=== PATIENT | female | born 1985 | race Caucasian/White ===

== ENCOUNTER 2016-08-31 19:02 | Outpatient (CLI) | payer OTHER | END 2016-08-31 19:03 | disposition home or self-care (01) | DX: O99.89 Other specified diseases and conditions complicating pregnancy, childbirth and the puerperium (principal); R10.10 Upper abdominal pain, unspecified ==

== ENCOUNTER 2016-10-19 15:14 | Outpatient (CLI) | payer OTHER | END 2016-10-19 15:15 | disposition critical access hospital (66) | LOC: EMS 15:14 | PROVIDERS: ATTEND Surgery | DX: R45.850 Homicidal ideations (principal); R45.851 Suicidal ideations | CPT/HCPCS: A0425; A0429 ==

== ENCOUNTER 2016-10-19 15:31 | Emergency (ER) | payer OTHER ==
--- NOTE | 2016-10-19 15:54 | ED Physician Documentation ---
PD HPI MHE - Stated complaint Stated Complaint: SI - Chief complaint Chief Complaint: MHE - History obtained from History obtained from: Patient, EMS, Police - History of Present Illness Primary symptom: Suicidal ideation, Homicidal ideation (feeling stressed by baby, but does not have urge/sensation of wanting to act on any of the feelings.), Depression (she has felt depression since prior child 16 months ago, and had quick new (when prior child was only 7 months old) . Having increased depression and fatigue the past month since of newest baby.). 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 Has counselor. Was having suicidal thoughts and so brought to ED for evalaution.) Contributing factors: Family ( child and another 16 month old child). No : Substance abuse - ETOH, Substance abuse - drugs Similar symptoms before: Diagnosis ( depression) Recently seen: Clinic (counseling weekly) Review of Systems Constitutional: denies: Fever, Chills Nose: denies: Rhinorrhea / runny nose, Congestion Throat: denies: Sore throat Respiratory: denies: Cough GI: denies: Vomiting, Diarrhea : denies: Dysuria, Frequency, Discharge Psychiatric: reports: Depressed. 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 MAINTAINER: section, Oophrectomy - Present Medications Home Medications: Ambulatory Orders Medication Instructions Recorded Confirmed Multivit with Calcium,Iron,Min 1 each PO DAILY PM 12/26/15 12/26/15 [Multiple Vitamins For Women] Paroxetine HCl [Paxil] 40 mg PO DAILY 10/19/16 10/19/16 - Allergies Allergies/Adverse Reactions: Allergies Allergy/AdvReac Type Severity Reaction Status Date / Time codeine Allergy Hives Verified 10/19/16 15:34 - Social History Does the pt smoke?: No Smoking Status: Never smoker PD ED PE NORMAL - Vitals Vital signs reviewed: Yes - General General: Alert and oriented X 3, No acute distress, Well developed/nourished - Neck Neck: Supple, no meningeal sign, No adenopathy - Cardiac Cardiac: RRR, No murmur - Respiratory Respiratory: Clear bilaterally - Abdomen Abdomen: Soft, Non tender - Derm Derm: Normal color, Warm and dry - Neuro Neuro: Alert and oriented X 3, No motor deficit, Normal speech - Psych Psych: Normal affect. No: Normal mood (slightly sad but interacts well and smiles at times.) Results - Vitals Vitals: Vital Signs - 24 hr 10/19/16 10/19/16 15:35 16:57 Temperature 36.4 C L Heart Rate 79 67 Respiratory 16 Rate Blood Pressure 121/90 H 125/60 O2 Saturation 100 98 Oxygen O2 Source Room air - Labs Labs: Laboratory Tests 10/19/16 10/19/16 10/19/16 16:25 16:25 16:25 WBC 6.6 RBC 4.82 Hgb 11.0 L Hct 34.6 L MCV 71.9 L MCH 22.8 L MCHC 31.8 L RDW 17.8 H Plt Count 267 MPV 7.5 L Neut # 3.8 Lymph # 2.3 [place] # 0.4 Eos # 0.0 Baso # 0.0 Absolute Nucleated RBC 0.00 Nucleated RBCs 0.0 Sodium 139 Potassium 3.8 Chloride 110 Carbon Dioxide 20 L Anion Gap 9.0 BUN 8 Creatinine 0.7 Estimated GFR (MDRD) 98 Glucose 83 Calcium 9.1 Magnesium 2.2 Total Bilirubin 0.2 AST 20 ALT 20 Alkaline Phosphatase 76 Total Protein 7.2 Albumin 3.7 Globulin 3.5 Albumin/Globulin Ratio 1.1 Lipase 15 L TSH 0.95 Salicylates < 6.0 Acetaminophen < 10 L Ethyl Alcohol < 5.0 PD MEDICAL DECISION MAKING - ED course Complexity details: considered differential, d/w patient (she says she has had thought of hurting herself but no urges to act on it. Is seeking help. Is on antidepressant and gets counseling. Children are with grandmother, who will stay with the patient as well. 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 ) Departure - Departure Disposition: 01 Home, Self Care Clinical Impression: depression Depression Qualifiers: Depression Type: other depression Qualified Code(s): F32.89 - Other specified depressive episodes Condition: Stable Record reviewed to determine appropriate education?: Yes Instructions: ED Depression Follow-Up: Latrell Coffey MD [Primary Care Provider] - Comments: Continue your usual medications. See your Counselor tomorrow as scheduled. Call Crisis Line if you need someone to talk with before that or anytime. Discharge Date/Time: 10/19/16 16:57
[2016-10-19 16:32] LABS: BASOPHILS % (AUTO) 0.6 %; EOSINOPHILS % (AUTO) 0.7 %; HCT - HEMATOCRIT 34.6 % (37.0-47.0); LYMPHOCYTES # (AUTO) 2.3 10^3/uL (1.5-3.5); LYMPHOCYTES % (AUTO) 34.8 %; MEAN CORPUSCULAR HEMOGLOBIN 22.8 pg (27.0-31.0); MEAN CORPUSCULAR HGB CONC 31.8 g/dL (32.0-36.0); MEAN CORPUSCULAR VOLUME 71.9 fL (81.0-99.0); MEAN PLATELET VOLUME 7.5 fL (7.9-10.8); MONOCYTES # (AUTO) 0.4 10^3/uL (0.0-1.0); MONOCYTES % (AUTO) 6.8 %; NEUTROPHILS # (AUTO) 3.8 10^3/uL (1.5-6.6); NEUTROPHILS % (AUTO) 57.1 %; RED BLOOD COUNT 4.82 10^6/uL (4.20-5.40); RED CELL DISTRIBUTION WIDTH 17.8 % (12.0-15.0); UNCORRECTED WHITE BLOOD COUNT 6.6 x10^3/uL; WHITE BLOOD COUNT 6.6 x10^3/uL (4.8-10.8)
[2016-10-19 16:45] LABS: ALBUMIN/GLOBULIN RATIO 1.1 (1.0-2.2); BILIRUBIN,TOTAL 0.2 mg/dL (0.2-1.0); BUN - BLOOD UREA NITROGEN 8 mg/dL (6-20); CALCIUM 9.1 mg/dL (8.5-10.3); CARBON DIOXIDE - CO2 20 mmol/L (21-32); CHLORIDE 110 mmol/L (101-111); CREATININE 0.7 mg/dL (0.4-1.0); GFR - MDRD 98 (>89); GLUCOSE 83 mg/dL (70-100); LIPASE 15 U/L (22-51); MAGNESIUM 2.2 mg/dL (1.7-2.8); POTASSIUM 3.8 mmol/L (3.5-5.0); SALICYLATE < 6.0 mg/dL; SODIUM 139 mmol/L (135-145); TOTAL PROTEIN 7.2 g/dL (6.7-8.2)
[2016-10-19 16:49] LABS: ACETAMINOPHEN < 10 ug/mL (10-30)
[2016-10-19 16:58] VITALS: BP 125/60
== END 2016-10-19 16:57 | disposition home or self-care (01) ==
LOC: EDUNIT# → ED 15:31
DX: F53 Mental and behavioral disorders associated with the puerperium, not elsewhere classified (principal); F32.89 Other specified depressive episodes; R45.851 Suicidal ideations
CPT/HCPCS: 36415; 80053; 80307; 80320; 80329; 83690; 83735; 84443; 85025; 99283; 99284

== ENCOUNTER 2017-04-28 10:55 | Outpatient (CLI) | payer OTHER | END 2017-04-28 10:56 | disposition home or self-care (01) | LOC: LAB 10:55 | PROVIDERS: ATTEND Pathology Blood Banking & Transfusion Medicine | DX: Z01.89 Encounter for other specified special examinations (principal) | CPT/HCPCS: 36415 ==